=== PATIENT | female | born 1970 | race Two or more races ===

== ENCOUNTER 2021-02-15 15:46 | Emergency (ER) | payer OTHER ==
[~2021-02-15] VITALS: Ht 170.2 cm; Wt 162.9 kg
[2021-02-15 15:59] VITALS: BP 159/96
== END 2021-02-15 20:39 | disposition left against medical advice (07) ==
LOC: ER 15:47
DX: M79.645 Pain in left finger(s) (principal); Z53.21 Procedure and treatment not carried out due to patient leaving prior to being seen by health care provider